=== PATIENT | male | born 1940 | race Caucasian/White ===

== ENCOUNTER 2016-07-09 23:05 | Inpatient (IN) | payer BC, MEDICARE ==
[~2016-07-09] VITALS: Ht 182.9 cm; Wt 87.5 kg
--- NOTE | 2016-07-09 23:09 | NUR ---
Patient BIB private ambulance for Medical Clearance and GPS admission. Patient arrives on 5150 hold for DTS. Per hold, patient has stated SI with a plan of overdosing on prescription medications. Patient states he wishes to overdose due to a current family dispute. Patient arrives A/O x3, ambulatory, calm and cooperative. SOHEILAD reviewed medical clearance.
[2016-07-09] MEDS ORDERED: DOCU-25 PO (23:25)
[2016-07-09] MEDS ORDERED: DULO60CA45 PO (23:25)
[2016-07-09] MEDS ORDERED: HYDR-3657 PO (23:25)
[2016-07-09] MEDS ORDERED: ESCI10TA PO (23:25)
[2016-07-09] MEDS ORDERED: PITA2TAB PO (23:25)
[2016-07-09] MEDS ORDERED: METO25TA6 PO ×2 (23:25)
[2016-07-09] MEDS ORDERED: CHOL100043 PO (23:25)
[2016-07-09] MEDS ORDERED: EZET10TA PO (23:25)
[2016-07-09] MEDS ORDERED: LORA-259 PO (23:25)
[2016-07-09] MEDS ORDERED: ASPI-612 PO (23:25)
--- NOTE | 2016-07-09 23:44 | NUR ---
Pt. admitted to GPS, under care of Dr. Naranjo Belongs List completed.
[2016-07-09] MEDS ORDERED: MAGNESIUM HYDROXIDE 30 ML LIQUID UDC PO PRN (23:45)
[2016-07-09] MEDS ORDERED: ACETAMINOPHEN 325 MG TABLET PO PRN (23:45)
[2016-07-09] MEDS ORDERED: TEMAZEPAM 7.5 MG CAPSULE PO PRN (23:45)
[2016-07-09] MEDS ORDERED: MAG HYDROX/AL HYDROX/SIMETH 30 ML LIQUID UDC PO PRN (23:45)
--- NOTE | 2016-07-10 04:33 | NUR ---
GPS/NSG Patient is a 75 yr old male admitted to Geriatric psychiatric unit on a 5150 for danger to self under the care of Dr. Naranjo and Russel Negrete NP. According to the hold, patient verbalized feeling suicidal and stated he wanted to kill himself by overdosing on prescription medication due to a recent family dispute. Patient was medically cleared at [facility] then transferred to the mental health unit for psychiatric follow up. Upon arrival patient observed to be alert, oriented to name, place, and time. Cooperative with admission process, with son by his side. Patient denied suicidal ideation or intent however did mention his diseased son's and that it was his birthday. Patient has a history of Depression. Medical history according to patient include hypertension, three stents, L4 fusion, hernia repair x three. Patient also stated he was a 100% disabled [employer] Valuables placed in the unit safe, patient oriented to room, will monitor Q 15 minutes for safety.
[2016-07-10 07:30] VITALS: BP 154/85
[2016-07-10] MEDS: LORAZEPAM 1 MG TABLET PO PRN ×3 (08:15→20:19)
[2016-07-10] MEDS ORDERED: HYDROCODONE/APAP 10-325 MG TABLET PO ONE (09:45)
[2016-07-10] MEDS ORDERED: ASPIRIN 325 MG TABLET PO PRN (10:15)
--- NOTE | 2016-07-10 14:00 | NUR ---
Russel BARBER seen and examined patient with orders for echocardiogram and US of Aorta and PVC . Radiology department called, it will be done tomorrow morning. Patient should be NPO post midnight. Patient notified about the procedure.
[2016-07-10 16:12] VITALS: BP 130/75
[2016-07-10] MEDS ORDERED: METOPROLOL TARTRATE 25 MG TABLET PO ONE ×2 (16:30→17:00)
--- NOTE | 2016-07-10 16:57 | NUR ---
PT SON, DANIEL, CAME TO NURSES STATION, ASKING MULTIPLE QUESTIONS WANTING "THE NAME AND NUMBER OF EVERYONE WORKING WITH MY DAD." PT HAD PIECE OF PAPER AND ALL NAMES WRITTEN DOWN, WELL UNIT NUMBER, VISITING HOURS, DOCTORS NAME, ETC." PT'S SON APPEARS DEMANDING THAT PT IS TRANSFERRED, WITHOUT GIVING REASONING WHY. STATED "FROM NOW ON, I'M GONNA BE ADVOCATING FOR MY DAD." PT'S SON IS NOT DPOA. EXPLAINED THAT STAFF ARE ALL PT ADVOCATES AND LOOK AFTER PT'S BEST INTEREST AT ALL TIMES, AND HE HAS NO LEGAL RIGHT TO MAKE DECISIONS FOR THE PT. ESPECIALLY THAT THE PT IS QUITE AOX4. CONTINUES TO STATE HE IS PT'S "PRIMARY ADVOCATE."
[2016-07-10] MEDS: HYDROCODONE/APAP 10-325 MG TABLET PO PRN (16:59)
[2016-07-10] MEDS ORDERED: METOPROLOL TARTRATE 25 MG TABLET PO SCH (18:00)
--- NOTE | 2016-07-10 18:49 | NUR ---
1620 Went to patient room to give medication metoprolol 12.5 mg po- patient took it. Patient's concern about patient not receiving the right dose of metoprolol. stated that patient take 25 mg po twice a day and 12.5 mg during mid day. List of medications given to staff and a copy attached to his chart. 1630 Called Russel BARBER about the metoprolol dose which take at home as mentioned above spoke to Russel Negrete with order carried out. 1700 Another dose of metoprolol 12.5 mg po given to make total 25 mg po. given.
[2016-07-10 20:03] VITALS: BP 130/69
[2016-07-10] MEDS ORDERED: DULOXETINE 60 MG CAPSULE.DR PO SCH (21:00)
[2016-07-10] MEDS ORDERED: EZETIMIBE 10 MG TABLET PO SCH (21:00)
[2016-07-11] MEDS: HYDROCODONE/APAP 10-325 MG TABLET PO PRN ×2 (01:49→09:38)
[2016-07-11 07:53] VITALS: BP 142/91
[2016-07-11] MEDS ORDERED: ESCITALOPRAM OXALATE 10 MG TABLET PO SCH (09:00)
[2016-07-11] MEDS ORDERED: CHOLECALCIFEROL 1,000 UNIT TABLET PO SCH (09:00)
[2016-07-11] MEDS ORDERED: METOPROLOL TARTRATE 25 MG TABLET PO SCH ×2 (09:00→18:00)
[2016-07-11] MEDS ORDERED: DOCUSATE SODIUM 100 MG CAPSULE PO SCH (09:00)
[2016-07-11 09:11] VITALS: BP 142/91
[2016-07-11] MEDS: LORAZEPAM 1 MG TABLET PO PRN (09:38)
--- NOTE | 2016-07-11 09:57 | NUR ---
DC Note: Patient will be discharged home [[address] [facility] [address] [place], [address]; [phone]] via private transportation at 12:00 pm. Patient will be picked up by his son, Torsetn Muller [phone]. Patient is aware and agreeable with discharge plans. Patient will follow-up with ([facility]) [[id number], [place] [address]; ] and (Psychiatrist) [[id number], [place] [address]; [phone]].
--- NOTE | 2016-07-11 11:50 | NUR ---
GPS: Nursing Notes: Discharge Notes: Patient is awake and responding to his name, cooperative and pleasant with staff, compliant with his medications, following staff directions, denies any SI/HI, denies, AH/VH, denies any pain or discomfort, denies any SOB, patient discharge home with son - Torsten Muller ext. [phone] at [address] [place] [address] , needs to follow up with Dr. Villa (psychiatrist) and Dr. Brizuela (beater out) for aftercare as soon as possible, transported home via private vehicle with his son Torsten Muller.
== END 2016-07-11 11:50 | disposition home or self-care (01) | DRG 881 ==
LOC: ER 23:06 → GPS 23:38
PROVIDERS: ADMIT Psychiatry & Neurology Psychiatry; ATTEND Psychiatry & Neurology Psychiatry
DX: F32.9 Major depressive disorder, single episode, unspecified (principal); F41.9 Anxiety disorder, unspecified; K21.9 Gastro-esophageal reflux disease without esophagitis; I10 Essential (primary) hypertension; Z88.5 Allergy status to narcotic agent; M19.90 Unspecified osteoarthritis, unspecified site; M54.5 Low back pain; Z96.643 Presence of artificial hip joint, bilateral; R01.1 Cardiac murmur, unspecified; R09.89 Other specified symptoms and signs involving the circulatory and respiratory systems
CPT/HCPCS: 71010; 97161